=== PATIENT | female | born 1935 ===

== ENCOUNTER 2020-03-04 07:14 | Outpatient (CLI) | payer OTHER ==
[~2020-03-04 07:14] MED LIST: CEFADROXIL500 MG PO; PERCOCET 5/321 UDTAB PO; XARELTO10 MG PO
== END 2020-03-04 07:29 | disposition home or self-care (01) ==
LOC: RAD 07:14 → MAMO-SONO 07:45 → RX STUDY 08:15
PROVIDERS: ATTEND Internal Medicine Gastroenterology
DX: R16.0 Hepatomegaly, not elsewhere classified (principal); K21.0 Gastro-esophageal reflux disease with esophagitis